=== PATIENT | male | born 1990 | race Caucasian/White ===

== ENCOUNTER 2025-02-02 17:47 | Emergency (ER) | payer OTHER ==
--- NOTE | 2025-02-02 17:55 | ED ---
Fall HPI - General Stated Complaint: FALL Time Seen by Provider: 02/02/25 17:51 Source: RN notes reviewed, old records reviewed Mode of arrival: EMS Limitations: altered mental status (Intoxication) - History of Present Illness Initial Comments: This is a 34-year-old male to the ER for evaluation of severe left elbow pain this occurred during a fall while skateboarding today. 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 ROS Other: All systems not noted in ROS Statement are negative. General Exam General appearance: alert, in no apparent distress Head exam: Present: atraumatic, normocephalic, normal inspection Eye exam: Present: normal appearance, PERRL, EOMI. Absent: scleral icterus, conjunctival injection, periorbital swelling ENT exam: Present: normal exam, mucous membranes moist Neck exam: Present: normal inspection. Absent: tenderness, meningismus, lymphadenopathy Respiratory exam: Present: normal lung sounds bilaterally. Absent: respiratory distress, wheezes, rales, rhonchi, stridor Cardiovascular Exam: Present: regular rate, normal rhythm, normal heart sounds. Absent: systolic murmur, diastolic murmur, rubs, gallop, clicks GI/Abdominal exam: Present: soft, normal bowel sounds. Absent: distended, tenderness, guarding, rebound, rigid Extremities exam: Present: normal inspection, full ROM, normal capillary refill. Absent: tenderness, pedal edema, joint swelling, calf tenderness Back exam: Present: normal inspection Neurological exam: Present: alert, oriented X3, CN II-XII intact Psychiatric exam: Present: normal affect, normal mood Skin exam: Present: warm, dry, intact, normal color. Absent: rash Course Vital Signs 02/02/25 02/02/25 02/02/25 17:50 19:18 19:40 Temperature 98.4 F Pulse Rate 86 81 66 Respiratory 17 18 18 Rate Blood Pressure 134/93 137/100 141/112 O2 Sat by Pulse 97 98 100 Oximetry 02/02/25 02/02/25 02/02/25 19:44 20:00 20:23 Temperature 98.3 F Pulse Rate 84 95 84 Respiratory 18 18 18 Rate Blood Pressure 98/70 151/85 132/74 O2 Sat by Pulse 100 100 100 Oximetry - Reevaluation(s) Reevaluation #1: 02/02/25 18:33 Medical records reviewed Reevaluation #2: Patient has adequate pain control here in the ER Reevaluation #3: Patient informed of results and questions answered Reevaluation #4: Was pt. sent in by a medical professional or institution (, PA, LIMEHOUSE WORKER, urgent care, hospital, or correction...) When possible be specific @ -no Did you speak to anyone other than the patient for history (EMS, parent, family, police, friend...)? What history was obtained from this source @ -no Did you review nursing and triage notes (agree or disagree)? Why? @ -agree Are old charts reviewed (outside hosp., previous admission, EMS record, old EKG, old radiological studies, urgent care reports/EKG's, correction records)? Report findings @ -yes Differential Diagnosis (chest pain, altered mental status, abdominal pain women, abdominal pain men, vaginal bleeding, weakness, fever, dyspnea, syncope, headache, dizziness, GI bleed, back pain, seizure, CVA, palpatations, mental health, musculoskeletal)? @ -prior EKG interpreted by me (3pts min.). @ -no X-rays interpreted by me (1pt min.). @ -yes fracture dislocation left elbow CT interpreted by me (1pt min.). @ -no U/S interpreted by me (1pt. min.). @ -no What testing was considered but not performed or refused? (CT, X-rays, U/S, labs)? Why? @ -none What meds were considered but not given or refused? Why? @ -none Did you discuss the management of the patient with other professionals (professionals i.e. , PA, LIMEHOUSE WORKER, lab, RT, psych nurse, social and human services assistant, marketing support assistant, teacher, seismology technical officer, field nurse case manager)? Give summary @ -no Was smoking cessation discussed for >3mins.? @ -no Was critical care preformed (if so, how long)? @ -no Were there social determinants of health that impacted care today? How? (Homelessness, low income, unemployed, alcoholism, drug addiction, transportation, low edu. Level, literacy, decrease access to med. care, care home, rehab)? @ -none Was there de-escalation of care discussed even if they declined (Discuss DNR or withdrawal of care, Hospice)? DNR status @ -no What co-morbidities impacted this encounter? (DM, HTN, Smoking, COPD, CAD, Cancer, CVA, ARF, Chemo, Hep., AIDS, mental health diagnosis, sleep apnea, morbid obesity)? @ -none Was patient admitted / discharged? Hospital course, mention meds given and route, prescriptions, significant lab abnormalities, going to OR and other pertinent info. @ - 34 male to ER after skateboard injury no fall, acutely intoxicated left el bow fracture dislocation reduced here in the ER and patient can be discharged home Discharge Undiagnosed new problem with uncertain prognosis? @ -no Drug Therapy requiring intensive monitoring for toxicity (Heparin, Nitro, Insulin, Cardizem)? @ -no Were any procedures done? @ -Yes conscious sedation fracture reduction joint reduction Diagnosis/symptom? @ -Fall left elbow fracture dislocation Acute, or Chronic, or Acute on Chronic? @ -Acute Uncomplicated (without systemic symptoms) or Complicated (systemic symptoms)? @ -Complicated Side effects of treatment? @ -no Exacerbation, Progression, or Severe Exacerbation? @ -exacerbation Poses a threat to life or bodily function? How? (Chest pain, [place], [place], pneumonia, PE, COPD, DKA, ARF, appy, cholecystitis, CVA, Diverticulitis, Homicidal, S uicidal, threat to staff... and all critical care pts) @ -no Procedures - Orthopedic Fracture Reduction Fracture #1 Consent Obtained: verbal consent Side: left Fracture Reduction Location: radius Analgesia: procedural sedation Technique: direct manipulation Post Reduction X-rays Demonstrate: anatomical reduction Post-Reduction Neuro Exam: intact Post-Reduction Vascular Exam: intact Splint Applied: Yes Patient Tolerated Procedure: well - Orthopedic Joint Reduction Joint #1 Consent Obtained: verbal consent Side: left Joint Reduction Location: elbow Analgesia: procedural sedation Technique Used: traction/counter-traction Post-Reduction Neuro Exam: intact Post-Reduction Vascular Exam: intact Post Reduction X-Ray Obtained: Yes Post Reduction X-Ray Results: reduced Splint Applied: Yes Patient Tolerated Procedure: well - Procedural Sedation *Procedural Sedation Start Time: 18:45 *Procedural Sedation Stop Time: 19:30 *Risks,benefits, and alternative therapies discussed?: Yes *Patient indicates understanding of risk/benefit discussion?: Yes *Indications: fracture/dislocation reduction *Previous Adverse Reaction to Anesthesia/Sedation?: Yes *ASA Class: III *Mallampati Airway Score: 3 Preparation: radiation monitor applied, pulse oximeter, capnometry used IV Propofol Dose (mgs): 200 Complications: none Interventions: oxygen applied Patient Tolerated Procedure: well Medical Decision Making - Medical Decision Making 34 male to ER after skateboard injury no fall, acutely intoxicated left elbow fracture dislocation reduced here in the ER and patient can be discharged home - Radiology Data Radiology results: report reviewed (X-ray left elbow positive fracture with dislocation, repeat x-ray shows good alignment splint placed), image reviewed Disposition Clinical Impression: Fall, Left elbow fracture, Dislocation of left elbow, Alcohol intoxication Disposition: HOME SELF-CARE Condition: Good Instructions (If sedation given, give patient instructions): Elbow Fracture (ED), Moderate Sedation (ED) Is patient prescribed a controlled substance at d/c from ED?: No Referrals: None,Stated [Primary Care Provider] - 1-2 days Time of Disposition: 20:00
[2025-02-02] MEDS: KETOROLAC 15 MG/ML 1 ML VIAL IVP STA (18:27)
[2025-02-02] MEDS: SODIUM CHLORIDE 0.9% 1,000 ML IV ONE (18:27)
[2025-02-02] MEDS: ONDANSETRON 4 MG/2 ML VIAL IVP STA (18:28)
[2025-02-02] MEDS: HYDROmorphone 1 MG/ML 1 ML SYRINGE IVP STA (18:33)
--- NOTE | 2025-02-02 18:37 | XR ---
EXAMINATION TYPE: XR elbow limited LT DATE OF EXAM: 02/02/2025 6:23 PM COMPARISON: None. CLINICAL INDICATION: Male, 34 years old with history of fall, pain TECHNIQUE: 2 view(s) obtained. FINDINGS: There is dislocation of the ulna from the humerus. There is a transverse fracture just below the head of the radius. There is approximately 60 degree an gulation of the radial head. Radial head is dislocated from the humerus. Avulsed fracture fragment is anterior to the humerus. Posterior fat pad is elevated. IMPRESSION: 1. Dislocated humerus at the elbow joint anteriorly displaced in relation to the ulna and radius. 2. Transverse fracture proximal radius with significant angulation of the radial head. 3. Avulsion fracture fragment remains anterior to the humerus. [facility], , 02/02/2025 6:34 PM
--- NOTE | 2025-02-02 18:38 | XR ---
EXAMINATION TYPE: XR wrist limited LT DATE OF EXAM: 02/02/2025 6:23 PM COMPARISON: None. CLINICAL INDICATION: Male, 34 years old with history of fall, pain TECHNIQUE: 2 view(s) obtained. FINDINGS: Radius and ulna distally appear intact. Proximal and distal carpal row appears intact. Joint spaces a re preserved. No acute fracture or dislocation in the wrist is evident. Follow up exams can be performed 7-10 days from acute trauma for unexplained pain. Three-phase bone s can can be performed if there is pain at the anatomic snuff box. IMPRESSION: 1. No acute osseous abnormality left wrist [facility], , 02/02/2025 6:36 PM
[2025-02-02 19:26] VITALS: RESP 18
[2025-02-02] MEDS: PROPOFOL 10 MG/ML 20 ML VIAL IV STA (19:40)
--- NOTE | 2025-02-02 20:05 | XR ---
EXAMINATION TYPE: XR elbow limited LT DATE OF EXAM: 02/02/2025 7:53 PM COMPARISON: Earlier exam CLINICAL INDICATION: Male, 34 years old with history of reduction, pain TECHNIQUE: Lateral view(s) obtained. FINDINGS: Ulna has improved orientation in relation to the humerus. Radius remain somewhat subluxed inferiorly in relation to the distal humerus. There is diastases of the radial head fracture away from the distal radius. This may be trapped withi n the joint space. Additional smaller fractures remain visualized. No new fractures are identified. I mages are obtained through a fiberglass splint. IMPRESSION: 1. Post reduction left ulnar dislocation. 2. Fracture at the radial head now has diastases of the fracture. The radial head may be trapped with in the joint space and is away from the diaphysis of the radius and not anterior to the humerus. [facility], , 02/02/2025 8:03 PM
[2025-02-02] MEDS: ACET/COD 300 MG/30 MG STARTER PACK 6 TAB BTL PO STA (20:20)
[2025-02-02 20:23] VITALS: BP 132/74; PULSE 84; TEMP 98.3
== END 2025-02-02 20:23 | disposition home or self-care (01) ==
LOC: EC 17:47
DX: S52.122A Displaced fracture of head of left radius, initial encounter for closed fracture (principal); S53.005A Unspecified dislocation of left radial head, initial encounter; F10.129 Alcohol abuse with intoxication, unspecified; V00.131A Fall from skateboard, initial encounter; Y92.009 Unspecified place in unspecified non-institutional (private) residence as the place of occurrence of the external cause; Y93.51 Activity, roller skating (inline) and skateboarding
CPT/HCPCS: 73070; 73100; 24655; 24600; 99152; 99153 ×2; 99284; 96374; 96375 ×2; 96361; J2405; J1171; J1885; J2704

== ENCOUNTER 2025-02-11 17:43 | Emergency (ER) | payer OTHER ==
--- NOTE | 2025-02-11 18:27 | ED ---
Upper Extremity HPI - General Source: patient, RN notes reviewed Mode of arrival: ambulatory Limitations: no limitations - History of Present Illness MD Complaint: Injury to:: left, elbow <Burak Elena - Last Filed: 02/11/25 18:25> - General Source: patient, RN notes reviewed Mode of arrival: ambulatory Limitations: no limitations <Ramsey Leach - Last Filed: 02/11/25 20:27> - General Stated Complaint: L arm injury Time Seen by Provider: 02/11/25 17:57 - History of Present Illness Initial Comments: Quick note: This is a 34-year-old male presenting for left arm pain (04/06). Patient was seen in this ER on 02/02/2025 following a skateboard injury, fracturing and dislocating his left elbow, that was reduced in the ER. Patient states he has been having difficulty finding an orthopedic referral that accepts his insurance for casting and complains of ongoing pain. (Burak Elena) 34-year-old male presents emergency department complaint of left arm pain. Patient states he had a skateboard injury fell having a fracture dislocation on 02 February. Patient states that his pain is manageable but times is sore. He denies any paresthesias denies any weakness of his hand. He states that he attempted to follow with orthopedics or on-call and they refused to see him. Attempt to contact [facility] but due to his insurance need to be seen in the emergency department first. Patient has not contacted a primary or attempted to see any other orthopedic physician. (Ramsey Leach) - Related Data Allergies Allergy/AdvReac Type Severity Reaction Status Date / Time No Known Allergies Allergy Verified 02/02/25 17:56 Review of Systems ROS Other: All systems not noted in ROS Statement are negative. <Burak Elena - Last Filed: 02/11/25 18:25> ROS Other: All systems not noted in ROS Statement are negative. <Ramsey Leach - Last Filed: 02/11/25 20:27> ROS Statement: Those systems with pertinent positive or pertinent negative responses have been documented in the HPI. Past Medical History Past Medical History: No Reported History Additional Past Surgical History / Comment(s): hernia Past Psychological History: Anxiety, Depression, PTSD Smoking Status: Current every day smoker, Vaper Past Alcohol Use History: Occasional Past Drug Use History: Marijuana <Burak Elena - Last Filed: 02/11/25 18:25> General Exam Limitations: no limitations <Burak Elena - Last Filed: 02/11/25 18:25> General appearance: alert, in no apparent distress Head exam: Present: atraumatic, normocephalic, normal inspection Neck exam: Present: normal inspection. Absent: tenderness, meningismus, lymphadenopathy Respiratory exam: Present: normal lung sounds bilaterally. Absent: respiratory distress, wheezes, rales, rhonchi, stridor Cardiovascular Exam: Present: regular rate, normal rhythm, normal heart sounds. Absent: systolic murmur, diastolic murmur, rubs, gallop, clicks Extremities exam: Present: other (Neurovascular intact cap refill less than 2 seconds of the left hand, full range of motion and full grinding machine operator portable strength. Patient is splinted.) <Ramsey Leach - Last Filed: 02/11/25 20:27> - General Exam Comments Initial Comments: Visual Physical Exam Vital signs reviewed General: Patient is slightly boisterous and hostile, seated in wheelchair Head: Normocephalic, atraumatic Eyes: PERRLA, EOMI ENT: Airway patent Chest: Nonlabored breathing Skin: No visual rash, normal skin tone Neuro: Alert and oriented 3 Musculoskeletal: No gross abnormalities (Burak Elena) Course Vital Signs 02/11/25 18:19 Temperature 98 F Pulse Rate 60 Respiratory 20 Rate Blood Pressure 163/78 O2 Sat by Pulse 98 Oximetry Medical Decision Making <Burak Elena - Last Filed: 02/11/25 18:25> <Ramsey Leach - Last Filed: 02/11/25 20:27> - Medical Decision Making I completed the quick note portion of this chart signed KAREN Marion (Burak Elena) Was pt. sent in by a medical professional or institution ([facility], UNIT MANAGER CONVENIENCE STORES, urgent care, hospital, or fdc...) When possible be specific @ -No Did you speak to anyone other than the patient for history (EMS, parent, family, police, friend...)? What history was obtained from this source @ -No Did you review nursing and triage notes (agree or disagree)? Why? @ -I reviewed and agree with nursing and triage notes Were old charts reviewed (outside hosp., previous admission, EMS record, old EKG, old radiological studies, urgent care reports/EKG's, fdc records)? Report findings @ -Reviewed x-ray and records from 02/02/2025 emergency department including left elbow and wrist x-ray Differential Diagnosis (chest pain, altered mental status, abdominal pain women, abdominal pain men, vaginal bleeding, weakness, fever, dyspnea, syncope, headache, dizziness, GI bleed, back pain, seizure, CVA, palpatations, mental health, musculoskeletal)? @ -Left arm fracture left elbow dislocation EKG interpreted by me (3pts min.). @ -None X-rays interpreted by me (1pt min.). @ -Extremity left wrist possible subtle fracture X-ray left elbow fracture with mild shifting, additional fractures noted CT interpreted by me (1pt min.). @ -None done U/S interpreted by me (1pt. min.). @ -None done What testing was considered but not performed or refused? (CT, X-rays, U/S, labs)? Why? @ -None What meds were considered but not given or refused? Why? @ -None Did you discuss the management of the patient with other professionals (professionals i.e. , PA, UNIT MANAGER CONVENIENCE STORES, lab, RT, psych nurse, professor of social work, automotive service director, teacher, information systems security officer, case finisher)? Give summary @ -No Was smoking cessation discussed for >3mins.? @ -No Was critical care preformed (if so, how long)? @ -No Were there social determinants of health that impacted care today? How? (Home lessness, low income, unemployed, alcoholism, drug addiction, transportation, low edu. Level, literacy, decrease access to med. care, long term, rehab)? @ -No Was there de-escalation of care discussed even if they declined (Discuss DNR or withdrawal of care, Hospice)? DNR status @ -No What co-morbidities impacted this encounter? (DM, HTN, Smoking, COPD, CAD, Cancer, CVA, ARF, Chemo, Hep., AIDS, mental health diagnosis, sleep apnea, morbid obesity)? @ -None Was patient admitted / discharged? Hospital course, mention meds given and route, prescriptions, significant lab abnormalities, going to OR and other pertinent info. @ -Discharge patient was already splinted he is neurovascularly intact with no change in symptoms. He strongly advised that he needs to see orthopedics sooner than later and states that he will make sure he follows up in the morning. Understanding the risk Undiagnosed new problem with uncertain prognosis? @ -No Drug Therapy requiring intensive monitoring for toxicity (Heparin, Nitro, Insulin, Cardizem)? @ -No Were any procedures done? @ -No Diagnosis/symptom? @ -Left elbow fracture Acute, or Chronic, or Acute on Chronic? @ -Acute Uncomplicated (without systemic symptoms) or Complicated (systemic symptoms)? @ -Uncomplicated Side effects of treatment? @ -No Exacerbation, Progression, or Severe Exacerbation? @ -No Poses a threat to life or bodily function? How? (Chest pain, [place], [place], pneumonia, PE, COPD, DKA, ARF, appy, cholecystitis, CVA, Diverticulitis, Homicidal, Suicidal, threat to staff... and all critical care pts) @ -No (Ramsey Leach) Disposition <Burak Elena - Last Filed: 02/11/25 18:25> Is patient prescribed a controlled substance at d/c from ED?: No Time of Disposition: 20:24 <Ramsey Leach - Last Filed: 02/11/25 20:27> Clinical Impression: Left elbow fracture Disposition: HOME SELF-CARE Condition: Stable Instructions (If sedation given, give patient instructions): Arm Fracture in Adults (ED) Additional Instructions: Please return to the Emergency Department if symptoms worsen or any other concerns. Referrals: None,Stated [Primary Care Provider] - 1-2 days Ariel Shine MD [STAFF PHYSICIAN] - 1-2 days
--- NOTE | 2025-02-11 20:09 | XR ---
EXAMINATION TYPE: XR wrist complete LT DATE OF EXAM: 02/11/2025 7:50 PM COMPARISON: 02/02/2025 CLINICAL INDICATION: Male, 34 years old with history of pain, pain TECHNIQUE: 3 view(s) obtained. FINDINGS: No acute fracture or dislocation evident. There is however some slight irregularity of the dorsal pro ximal metacarpal on the lateral projection. Overlying soft tissue swelling is not identified. Corresp onding fracture not identified on the additional images. CT can be performed if additional evaluatio n would be of benefit. Joint Spaces appear preserved. IMPRESSION: 1. Subtle irregularity which appears to be within the dorsal proximal metacarpal on the lateral proj ection. There is pain in this region, consider CT if confirmation of fracture would be of benefit. [facility], , 02/11/2025 8:06 PM
--- NOTE | 2025-02-11 20:22 | XR ---
EXAMINATION TYPE: XR elbow complete LT DATE OF EXAM: 02/11/2025 7:50 PM COMPARISON: 02/02/2025 CLINICAL INDICATION: Male, 34 years old with history of Ongoing pain, prior fracture/dislocation, garfield n TECHNIQUE: 3 view(s) obtained. Images obtained through a fiberglass splint. FINDINGS: Radial head is displaced from the radius. Additional fracture fragments are anterior to the distal hu merus. Anterior fat-pad is elevated. There may be some mild elevation of posterior fat pad. IMPRESSION: 1. Dislocated radial head from the shaft of the radius. 2. Additional fracture brightens at the elbow. 3. Findings have shifted somewhat from the comparison. [facility], , 02/11/2025 8:20 PM
[2025-02-11] MEDS: ACET/COD 300 MG/30 MG STARTER PACK 6 TAB BTL PO STA (20:35)
[2025-02-11 20:55] VITALS: BP 152/78; PULSE 65; RESP 18; TEMP 98.3
== END 2025-02-11 20:55 | disposition home or self-care (01) ==
LOC: EC 17:43
DX: S42.402A Unspecified fracture of lower end of left humerus, initial encounter for closed fracture (principal); F17.290 Nicotine dependence, other tobacco product, uncomplicated; V00.131A Fall from skateboard, initial encounter; Y93.51 Activity, roller skating (inline) and skateboarding
CPT/HCPCS: 99284

== ENCOUNTER → 2025-02-14 | Outpatient (CLI) | payer OTHER ==
--- NOTE | 2025-02-14 10:37 | CT ---
EXAMINATION TYPE: CT elbow LT wo con DATE OF EXAM: 02/14/2025 10:23 AM COMPARISON: . Extremity radiograph same day. CLINICAL INDICATION: Male, 34 years old with history of S52.132A DISP FX OF NECK OF LEFT RADIUS; PH[facility], Fracture TECHNIQUE: Axial images were obtained of the CT elbow LT wo con, Additional coronal and sagittal refo rmatted images and soft tissue and bone window were obtained for review. 3-D reconstruction was creat ed on a separate workstation. Contrast used: mL of , (None if empty) Oral contrast used: (None if empty) CT DLP: 135.3 mGycm, Automated exposure control for dose reduction was used. FINDINGS: Acute fracture of the coronoid process of the ulna with multiple bony fragments and displac ement. Coronary process fragment displacement up to 1.2 cm. Additionally acute fracture of the distal radial head and neck with intra-articular extension. Multip le fracture lines are seen through the radial head. The radial head is displaced off the radial neck up to 1.7 cm. Radial head is displaced posterior to the humerus. The humerus appears intact. There is a joint effusion. IMPRESSION: 1. Comminuted intra-articular fracture of the distal radius with displaced radial head and off of th e radial neck. Radial head is displaced posterior to the humerus. Multiple fracture lines extend to t he intra-articular portion of the radial head. 2. Coronoid process fracture of the ulna with displacement up to 1.2 cm. [facility], , 02/14/2025 10:35 AM
== END | disposition home or self-care (01) ==
LOC: RADCTMAIN 09:40
PROVIDERS: ATTEND Orthopaedic Surgery
DX: S52.132A Displaced fracture of neck of left radius, initial encounter for closed fracture (principal); S53.105A Unspecified dislocation of left ulnohumeral joint, initial encounter; S52.572A Other intraarticular fracture of lower end of left radius, initial encounter for closed fracture; S52.042A Displaced fracture of coronoid process of left ulna, initial encounter for closed fracture; X58.XXXA Exposure to other specified factors, initial encounter

== ENCOUNTER 2025-02-17 14:13 | Day surgery (SDC) | payer OTHER ==
[~2025-02-17 14:13] MED LIST: Pre Op ABX Message 1 EACH MISC MISCELLANE ONE
[2025-02-17] MEDS: IV FLUID CONTINUATION 1,000 ML IV ONE (14:26)
[2025-02-17] MEDS: LACTATED RINGERS 1,000 ML IV SCH (14:37)
[2025-02-17] MEDS: ONDANSETRON 4 MG/2 ML VIAL IVP ONE (14:39)
[2025-02-17] MEDS: DEXAMETHASONE SOD PHOSPHATE 4 MG/ML 1 ML VIAL IV ONE (14:41)
[2025-02-17] MEDS: fentaNYL (PF) 50 MCG/ML 2 ML AMP IVP STA (15:16)
[2025-02-17] MEDS: MIDAZOLAM 2 MG/2 ML VIAL IV ONE (15:17)
--- NOTE | 2025-02-17 15:23 | P.ANPRN ---
Procedure Note - Anesthesia - Nerve Block Performed Left Supraclavicular Single Time Out Performed: Yes ([id number]) Date of Procedure: 02/17/25 Procedure Start Time: 15:07 Procedure Stop Time: 15:11 Location of Patient: PreOp Indication: Acute Post-Operative Pain, Requested by Surgeon Specifically requested for management of pain by DrDelon: Ninfa Reed Sedation Type: Sedate with meaningful contact maintained Preparation: Sterile Prep Position: Supine Catheter: None Needle Types: Pajunk Needle Gauge: 21 Ultrasound used to visualize needle placement: Yes Ultrasound used to observe medication spread: Yes Injectate: 0.5% Ropivacaine (see comment for volume) (30CC+DECADRON 4MG) Blood Aspirated: No Pain Paresthesia on Injection Noted: No Resistance on Injection: Normal Image Stored and Saved: Yes Events: Uneventful and Well Tolerated
[2025-02-17 15:27] VITALS: RESP 16
[2025-02-17] MEDS ORDERED: LIDOCAINE 1% INJ 10MG/ML (20 ML MDV) ONE (16:34)
[2025-02-17] MEDS ORDERED: fentaNYL (PF) 50 MCG/ML 2 ML AMP ONE (16:34)
[2025-02-17] MEDS ORDERED: PROPOFOL 10 MG/ML 20 ML VIAL IV ONE (16:34)
[2025-02-17] MEDS ORDERED: DEXAMETHASONE SOD PHOSPHATE 4 MG/ML 1 ML VIAL ONE (16:34)
[2025-02-17] MEDS ORDERED: TRANEXAMIC 1,000 MG/100ML-NACL PREMIX BAG ONE (16:34)
[2025-02-17] MEDS ORDERED: MIDAZOLAM 2 MG/2 ML VIAL ONE (16:34)
[2025-02-17] MEDS ORDERED: ROPIVACAINE 5 MG/ML 30 ML VIAL ONE (16:34)
[2025-02-17] MEDS: SODIUM CHLORIDE 0.9% 50 ML with ceFAZolin 2,000 MG IV ONE (16:39)
[2025-02-17] MEDS: LACTATED RINGERS 1,000 ML IV ONE ×2 (17:11→19:33)
[2025-02-17 19:56] VITALS: TEMP 97.2
[2025-02-17] MEDS: HYDROmorphone 0.5 MG/0.5 ML SYRINGE IVP PRN (20:13)
[2025-02-17] MEDS: HYDROcodone/APAP 5-325MG 1 EACH TAB PO STA (20:35)
[2025-02-17 20:46] VITALS: BP 132/105; PULSE 58
--- NOTE | 2025-02-17 22:18 | P.OP ---
Date of Procedure: 02/17/25 Preoperative Diagnosis: Left radial head fracture and dislocation, Left coronoid fracture, Left lateral ulnar collateral ligament rupture, Left elbow instability Postoperative Diagnosis: same Procedure(s) Performed: Left olecranon open reduction internal fixation, Left radial head excision, Left radial head arthroplasty, Left lateral ulnar collateral ligament repair Implants: Huntley evolve radial head, 7.5mm Proline stem, 24mm proline head, Arthrex 2.2 corkscrew Anesthesia: HUNTER regional Surgeon: Ninfa Reed Stakes Player #1: Chalino Hutchinson Estimated Blood Loss (ml): 20 Pathology: none sent Condition: stable Disposition: PACU Indications for Procedure: Patient had a skateboard fall on 02/03/25 sustaining a terrible triad injury. His ulnar humeral joint was reduced in the ER but the radio-humeral joint remained dislocated with complete displacement of the radial head until evaluation in the office 2 weeks later. We had a long discussion about treatment options. The patient understands that he will always have a stiff elbow. Because of the prolonged dislocation of the radial head, we have decided to proceed with a radial head replacement. In addition, we will address the other components of his instability. Description of Procedure: The patient, operative extremity, and procedure were identified in the preop holding area. After informed consent was obtained, the anesthesia team perform ed a regional block. The patient was then brought back to the operating room where the extremity was prepped and draped in normal sterile fashion with a tourniquet on the patients brachium. A formal timeout was performed and the tourniquet was inflated to 250mmHg. A curvilinear incision was made along the lateral aspect of the elbow centered over the radiohumeral joint. Dissection was carried down to fascia with care taken to protect the cutaneous nerves. An EDC splitting approach was used. After splitting the fascia, the fracture hematoma was encountered. The dissection was carried down to the joint itself. The sleeve was extended proximally and the anterior capsule of the elbow was carefully lifted from the lateral epicondyle with care taken to stay anterior. The lateral epicondyle was examined and the lateral ulnar collateral ligament was completely avulsed off. The radial head was located in the lateral recess and was excised. The neck junction was quite worn. This was measured on the back table to be 44mm. Attention was then turned to the coronoid fracture. The coronoid piece was located and the fracture site was cleaned. Using a dental pick and a point to p oint, the fracture was reduced. A 2.5 cannulated screw was then used to hold the fixation through a separate small posterior incision. Unfortunately, when the elbow was manipulated for the radial head arthroplasty, the fractured segment was dislodged. The decision was then made to convert to a suture fixation. A #2 fiberwire was then used to lasso the coronoid fragment. The 2.0 drill was used to create another bone tunnel to the fracture site. A oakley suture passer was then used to retrieve the ends of the lasso. Attention was then turned to the radial head. The radial neck was identified and pulled laterally. The canal finder and sequential broaches were utilized. A 8mm broach was a full fit. The planer was then utilized to level the neck cut. A size 7mm trial was utilized with the shortest 44mm head. Reduction was performed and the joint was examined under fluroscopy. The ulnohumeral joint had a symmetrical gap to the radial head on the AP. The trial was removed and the wound was irrigated. The final implant was placed. The elbow was placed in 90 degrees of flexion and the ends of the suture repair were secured over a bony bridge posteriorly. Attention was then turned to the LUCL. A corkscrew anchor was placed in the center of rotation of the distal humerus. The 2.0 fiberwire was used to secure the LUCL and extensor tendons with a locking stitch. The remainder of the tendinous and fascial sleeve was repaired with 0 vicryl. Gentle ROM of the elbow underfluoroscopy showed a concentric and stable joint. The tourniquet was let down, hemostasis was achieved. The remainder of the wounds were closed with 3.0 vicryl, 4.0 monocryl, and skin glue with steristrips. The arm was placed in a long arm splint with the forearm in pronation. Patient was aroused by the anesthesia team and he was brought back to PACU in stable condition.
== END 2025-02-17 21:01 | disposition home or self-care (01) ==
LOC: OR 14:13
PROVIDERS: ATTEND Orthopaedic Surgery Hand Surgery
DX: S52.122A Displaced fracture of head of left radius, initial encounter for closed fracture (principal); S53.32XA Traumatic rupture of left ulnar collateral ligament, initial encounter; F41.9 Anxiety disorder, unspecified; F32.A Depression, unspecified; F43.10 Post-traumatic stress disorder, unspecified; Z87.891 Personal history of nicotine dependence; Z79.899 Other long term (current) drug therapy; X58.XXXA Exposure to other specified factors, initial encounter
CPT/HCPCS: 24640; 24343; 64415; C1713 ×2; J2250; J1100; J2405; J0690; J2003; J3010; J2795; J2704; J1171

== ENCOUNTER 2025-02-24 13:20 | Emergency (ER) | payer OTHER ==
[2025-02-24] MEDS: ONDANSETRON ODT 4 MG TAB PO STA (13:48)
--- NOTE | 2025-02-24 13:50 | ED ---
General Adult HPI - General Chief complaint: Nausea/Vomiting/Diarrhea Stated complaint: Check for clearance Time Seen by Provider: 02/24/25 13:36 Source: patient, police, EMS, RN notes reviewed Mode of arrival: EMS Limitations: no limitations - History of Present Illness Initial comments: Patient is a 34-year-old male presenting to the emergency department for intermediate clearance. Police report that patient was vomiting and they were called to the scene. Patient then became disruptive and combative. Patient was brought to the ground while attempting to restrain him and he did hit the side of his face. Patient became less agitated following this and officers felt he may have been a little bit altered. Patient states he does not want to be here. Patient admits to vomiting after taking his pain medications without eating today. No reported loss of consciousness. Patient states only has discomfort of his right cheek which is mild. Patient states he did have left elbow surgery a week ago and he has no new injury or concerns regarding his left elbow today. - Related Data Home Medications Medication Instructions Recorded Confirmed HYDROcodone/APAP 7.5-325MG [[place] 1 tab PO DIRECTED PRN 02/14/25 02/17/25 7.5-325] Previous Rx's Medication Instructions Recorded HYDROcodone/APAP 5-325MG [[place] 5] 1 each PO Q6HR PRN #10 tab 02/17/25 methylPREDNISolone Dose Pack 4 mg PO DIRECTED #1 packet 02/17/25 [Medrol Dose Pack] Allergies Allergy/AdvReac Type Severity Reaction Status Date / Time No Known Allergies Allergy Verified 02/24/25 13:42 Review of Systems ROS Statement: Those systems with pertinent positive or pertinent negative responses have been documented in the HPI. ROS Other: All systems not noted in ROS Statement are negative. Constitutional: Denies: fever Eyes: Denies: eye pain ENT: Denies: ear pain Respiratory: Denies: dyspnea Cardiovascular: Denies: chest pain Gastrointestinal: Denies: abdominal pain Musculoskeletal: Reports: as per HPI. Denies: back pain Neurological: Denies: headache, weakness Past Medical History Past Medical History: No Reported History Additional Past Medical History / Comment(s): shattered elbow (lft) History of Any Multi-Drug Resistant Organisms: None Reported Past Surgical History: Hernia Repair Additional Past Surgical History / Comment(s): hernia, wisdom teeth Past Anesthesia/Blood Transfusion Reactions: No Reported Reaction Past Psychological History: Anxiety, Depression, PTSD Smoking Status: Current every day smoker, Vaper Past Alcohol Use History: Occasional Past Drug Use History: Marijuana General Exam Limitations: no limitations General appearance: alert, in no apparent distress Head exam: Present: other (Mild swelling with mild tenderness right cheek.) Eye exam: Present: normal appearance, PERRL, EOMI, nystagmus (Mild horizontal nystagmus) ENT exam: Present: normal oropharynx Neck exam: Present: normal inspection. Absent: tenderness Respiratory exam: Present: normal lung sounds bilaterally Cardiovascular Exam: Present: regular rate, normal rhythm GI/Abdominal exam: Present: soft. Absent: tenderness Extremities exam: Present: other (Splint left arm) Neurological exam: Present: alert, oriented X3, CN II-XII intact. Absent: motor sensory deficit Expanded Neurological exam: Present: protecting the airway Patient oriented to: Present: person, place, time Speech: Present: fluid speech Cranial nerves: EOM's Intact: Normal Motor strength exam: RUE: 5, LUE: 5, RLE: 5, LLE: 5 Eye Response: (4) open spontaneously Motor Response: (6) obeys commands Verbal Response: (5) oriented Psychiatric exam: Present: agitated Skin exam: Present: normal color Course Vital Signs 02/24/25 02/24/25 02/24/25 13:36 14:33 14:38 Temperature 97.7 F Pulse Rate 74 91 90 Respiratory 18 20 22 Rate Blood Pressure 136/96 152/107 159/113 O2 Sat by Pulse 100 97 97 Oximetry 02/24/25 02/24/25 02/24/25 15:00 15:10 15:15 Temperature Pulse Rate 84 81 85 Respiratory 18 20 20 Rate Blood Pressure 185/124 187/115 139/100 O2 Sat by Pulse 97 96 96 Oximetry 02/24/25 02/24/25 02/24/25 15:24 15:27 15:30 Temperature Pulse Rate 83 84 84 Respiratory 20 20 Rate Blood Pressure 139/99 O2 Sat by Pulse 97 97 Oximetry 02/24/25 02/24/25 02/24/25 15:35 15:45 16:00 Temperature 97.9 F Pulse Rate 84 73 86 Respiratory 20 20 20 Rate Blood Pressure 146/97 125/83 141/99 O2 Sat by Pulse 97 95 98 Oximetry 02/24/25 02/24/25 02/24/25 16:16 16:22 16:32 Temperature 98 F Pulse Rate 86 78 90 Respiratory 18 18 18 Rate Blood Pressure 136/102 136/100 153/103 O2 Sat by Pulse 99 99 99 Oximetry 02/24/25 02/24/25 16:47 17:00 Temperature Pulse Rate 88 86 Respiratory 18 20 Rate Blood Pressure 150/89 157/101 O2 Sat by Pulse 99 99 Oximetry - Reevaluation(s) Reevaluation #1: 02/24/25 14:26 Patient has become increasingly agitated and irrational. Patient does not demonstrate that he understands he is under police custody. Patient states he does not want any help. Procedures - Restraint - Face to Face Restraint Occurrence 1 Patient's Immediate Situation: Endangers self safety, Endangers others' safety, Endangers staff safety Patient's Reaction to the Intervention: Uncooperative, Angry Patient's Medical & Behavioral Condition: Agitated Need to Continue or Terminate Restraint or Seclusion: Continue Face to Face Eval of Restraint Date: 02/24/25 Face to Face Eval of Restraint Time: 14:37 Medical Decision Making - Medical Decision Making Was pt. sent in by a medical professional or institution (, PA, BIOTECHNICIAN, urgent care, hospital, or skilled nursing...) When possible be specific @ -No Did you speak to anyone other than the patient for history (EMS, parent, family, police, friend...)? What history was obtained from this source @ -Police officers provide history Did you review nursing and triage notes (agree or disagree)? Why? @ -I reviewed and agree with nursing and triage notes Were old charts reviewed (outside hosp., previous admission, EMS record, old EKG, old radiological studies, urgent care reports/EKG's, skilled nursing records)? Report findings @ -No old charts were reviewed Differential Diagnosis (chest pain, altered mental status, abdominal pain women, abdominal pain men, vaginal bleeding, weakness, fever, dyspnea, syncope, headache, dizziness, GI bleed, back pain, seizure, CVA, palpatations, mental health, musculoskeletal)? @ -Differential Altered Mental Status: Hypoglycemia, DKA, hypercapnia, ETOH, overdose, CO poisoning, trauma, myxedema coma, HTN encephalopathy, infection, encephalitis, psychosis, intercranial hemorrhage, hepatic encephalopathy, meningitis, CVA, this is not meant to be an all-inclusive list EKG interpreted by me (3pts min.). @ -As above X-rays interpreted by me (1pt min.). @ -None done CT interpreted by me (1pt min.). @ -CT cervical spine and brain without acute abnormality U/S interpreted by me (1pt. min.). @ -None done What testing was considered but not performed or refused? (CT, X-rays, U/S, labs)? Why? @ -Considered CT of facial bones however patient did not feel necessary What meds were considered but not given or refused? Why? @ -None Did you discuss the management of the patient with other professionals (professionals i.e. , PA, BIOTECHNICIAN, lab, RT, psych nurse, school social worker, process improvement consultant, teacher, recruitment officer, cyanide case hardener)? Give summary @ -No Was smoking cessation discussed for >3mins.? @ -No Was critical care preformed (if so, how long)? @ -No Were there social determinants of health that impacted care today? How? (Homelessness, low income, unemployed, alcoholism, drug addiction, transportation, low edu. Level, literacy, decrease access to med. care, intermediate, rehab)? @ -No Was there de-escalation of care discussed even if they declined (Discuss DNR or withdrawal of care, Hospice)? DNR status @ -No What co-morbidities impacted this encounter? (DM, HTN, Smoking, COPD, CAD, Cancer, CVA, ARF, Chemo, Hep., AIDS, mental health diagnosis, sleep apnea, morbid obesity)? @ -Patient took pain medications without eating Was patient admitted / discharged? Hospital course, mention meds given and route, prescriptions, significant lab abnormalities, going to OR and other pertinent info. @ -Patient presents with agitation with concerns for change in mental status after head injury. Patient did become agitated in the emergency department. CT scan obtained without traumatic injury or other concern. Patient reevaluated and improved. Patient is able to ambulate. Patient will be discharged to police custody. Undiagnosed new problem with uncertain prognosis? @ -No Drug Therapy requiring intensive monitoring for toxicity (Heparin, Nitro, Insulin, Cardizem)? @ -No Were any procedures done? @ -No Diagnosis/symptom? @ -Agitation Acute, or Chronic, or Acute on Chronic? @ -Acute Uncomplicated (without systemic symptoms) or Complicated (systemic symptoms)? @ -Default Side effects of treatment? @ -No Exacerbation, Progression, or Severe Exacerbation? @ -No Poses a threat to life or bodily function? How? (Chest pain, [place], [place], pneumonia, PE, COPD, DKA, ARF, appy, cholecystitis, CVA, Diverticulitis, Homicidal, Suicidal, threat to staff... and all critical care pts) @ -No Disposition Clinical Impression: Agitation Disposition: HOME SELF-CARE Condition: Stable Instructions (If sedation given, give patient instructions): Mood Disorders (ED), Head Injury (ED) Additional Instructions: Discharged to police custody. Please follow-up with your primary care physician next 1 or 2 days for recheck. Please follow-up with orthopedic doctor as dir ected. Do not take pain medication without eating. Do not use other substances. Return for headache, weakness, change in mental status, worsening symptoms or any other concerns. Is patient prescribed a controlled substance at d/c from ED?: No Referrals: David Yates MD [Primary Care Provider] - 1-2 days Time of Disposition: 17:38
[2025-02-24] MEDS: KETAMINE 50 MG/ML 10 ML VIAL IM ONE (14:31)
--- NOTE | 2025-02-24 15:10 | CT ---
EXAMINATION TYPE: CT brain cspine wo con CT DLP: 1390.2 mGycm, Automated exposure control for dose reduction was used. DATE OF EXAM: 02/24/2025 3:02 PM COMPARISON: None.. CLINICAL INDICATION:Male, 34 years old with history of fall; ams, pain TECHNIQUE: Brain: Multiple axial CT images of the brain were obtained without IV contrast. Cspine: Axial CT images from the skull base to the inferior aspect of T2 we obtained without intraven ous contrast. Coronal and sagittal reformatted images were also reviewed. FINDINGS: Brain: Extra-axial spaces: No abnormal extra-axial fluid collections. Ventricular system: Within normal limits Cerebral parenchyma: No acute intraparenchymal hemorrhage or mass effect. The zamudio-white junction is well differentiated. Cerebellum: Unremarkable. Mass effect: No evidence of midline shift. Intracranial vasculature: unremarkable Soft tissues: Normal. Calvarium/osseous structures: No depressed skull fracture. Remote depressed left anterior maxillary w all fracture. Paranasal sinuses and mastoid air cells: Clear. Visualized orbits: Orbital contents are intact. Cervical spine: Limited examination due to patient positioning. Fracture: None. Osseous structures: Unremarkable Vertebral alignment: Within normal limits. Spinal canal/Neural Foramina: No evidence of significant spinal canal narrowing. No evidence for sign ificant neural foraminal stenosis. Neck soft tissues: Prevertebral soft tissues are within normal limits. Other: The airway is patent. The lung apices are clear. IMPRESSION: Limited examination due to patient positioning. 1. No acute intracranial process. 2. No evidence of cervical spine fracture. [facility], , 02/24/2025 3:08 PM
[2025-02-24 17:37] VITALS: RESP 18; TEMP 98
[2025-02-24 17:43] VITALS: BP 150/99; PULSE 97
== END 2025-02-24 17:43 | disposition home or self-care (01) ==
LOC: EC 13:20
DX: R45.1 Restlessness and agitation (principal); F17.290 Nicotine dependence, other tobacco product, uncomplicated
CPT/HCPCS: 70450; 72125; 96372; 99284

== ENCOUNTER 2025-03-21 16:57 | Emergency (ER) | payer OTHER ==
[2025-03-21 17:25] LABS: Glucose,Whole Blood 99 mg/dL (70-110)
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
[2025-03-21 17:37] LABS: Basophils # (A) 0.01 10*3/uL (0.00-0.10); Basophils % (A) 0.1 %; Eosinophils # (A) 0.01 10*3/uL (0.04-0.35); Eosinophils % (A) 0.1 %; HCT 45.3 % (39.6-50.0); HGB 16.5 g/dL (13.0-17.0); Lymphocytes # (A) 2.18 10*3/uL (0.90-5.00); Lymphocytes % (A) 25.3 %; MCH 33.5 pg (27.0-32.0); MCHC 36.4 g/dL (32.0-37.0); MCV 91.9 fL (80.0-97.0); Monocytes # (A) 0.65 10*3/uL (0.20-1.00); Monocytes % (A) 7.5 %; Neutrophils # (A) 5.75 10*3/uL (1.80-7.70); Neutrophils % (A) 66.7 %; Platelet Count 254 10*3/uL (140-440); RBC 4.93 10*6/uL (4.40-5.60); RDW 12.6 % (11.5-14.5); WBC 8.63 10*3/uL (4.50-10.00)
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
[2025-03-21] MEDS: LORazepam 1 MG/0.5 ML VIAL IV STA ×3 (17:49→20:58)
[2025-03-21 17:50] LABS: INR 0.9 (<1.2); Partial Thromboplastin Time 22.9 sec (22.0-30.0); Prothrombin Time 10.6 sec (10.0-12.5)
[2025-03-21] MEDS: HALOPERIDOL LACTATE 5 MG/ML 1 ML VIAL IVP PRN (17:50)
[2025-03-21] MEDS: SODIUM CHLORIDE 0.9% 1,000 ML IV STA (17:51)
[2025-03-21] MEDS: DIPH,PERTUS(ACELL)TETVAC-LF 0.5 ML VIAL IM ONE (17:53)
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
[2025-03-21 18:03] LABS: ALT 13 U/L (4-49); AST 25 U/L (17-59); African American GFR (CKD) >90 (>60 ml/min/1.73 sqM); Albumin 4.6 g/dL (3.5-5.0); Alkaline Phosphatase 103 U/L (38-126); Anion Gap 17 mmol/L; Blood Urea Nitrogen 9 mg/dL (9-20); Calcium 9.5 mg/dL (8.4-10.2); Carbon Dioxide 22 mmol/L (22-30); Chloride 106 mmol/L (98-107); Glucose 107 mg/dL (74-99); Non-African American GFR(CKD) >90 (>60 ml/min/1.73 sqM); Potassium 3.0 mmol/L (3.5-5.1); Sodium 145 mmol/L (137-145); Total Protein 7.2 g/dL (6.3-8.2)
[2025-03-21 18:43] LABS: Barbiturate Screen,Urine Not Detected (NotDetected); Benzodiazepines Screen,Urine Not Detected (NotDetected); Opiate Screen,Urine Not Detected (NotDetected); Oxycodone Screen, Urine Not Detected (NotDetected); Phencyclidine Screen,Urine Not Detected (NotDetected); Tricyclic Antidepressant,Urine Not Detected (NotDetected); Urn Cannabinoid Scrn Detected (NotDetected)
[2025-03-21 19:32] VITALS: RESP 16
[2025-03-21] MEDS: TOPICAL SKIN ADHESIVE 1 EACH AMP TOPICAL ONE (20:59)
[2025-03-22] MEDS: POTASSIUM CHLORIDE ER 20 MEQ TAB.ER PO STA (02:36)
[2025-03-22 02:37] VITALS: BP 141/87; PULSE 102; TEMP 97.4
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
== END 2025-03-22 02:33 | disposition home or self-care (01) ==
LOC: EC 16:57
DX: S01.112A Laceration without foreign body of left eyelid and periocular area, initial encounter (principal); S06.0XAA Concussion with loss of consciousness status unknown, initial encounter; F10.129 Alcohol abuse with intoxication, unspecified; E87.6 Hypokalemia; F17.290 Nicotine dependence, other tobacco product, uncomplicated; Z23 Encounter for immunization; Y90.9 Presence of alcohol in blood, level not specified
CPT/HCPCS: 36415; 93005; 86900; 86901; 80053; 83605; 84484; 85025; 85610; 85730; 86850; 80306; 72170; 71045; 72125; 70486; 70450; 90715; 99291; 90471; 96374; 96375; 96376; 96361; L0120; G0390; G0480; J2060; J1630; 80320